=== PATIENT | male | born 1945 | race Caucasian/White ===

== ENCOUNTER 2017-02-24 19:47 | Emergency (ER) | payer MEDICARE ==
[2017-02-24] MEDS ORDERED: Diph,Pert(Acell),Tet Vac 0.5 ML SYR IM ONE (20:01)
[2017-02-24] MEDS ORDERED: PREDNISONE 10 MG TAB PO ONE (20:28)
[2017-02-24] MEDS ORDERED: CEPHALEXIN 500 MG CAPSULE PO STA (20:28)
[2017-02-24] MEDS ORDERED: DIPHENHYDRAMINE HCL 25 MG CAPSULE PO ONE (20:28)
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
== END 2017-02-24 20:53 | disposition home or self-care (01) ==
LOC: ER 19:47
DX: L56.8 Other specified acute skin changes due to ultraviolet radiation (principal); X32.XXXA Exposure to sunlight, initial encounter; Y93.H3 Activity, building and construction
CPT/HCPCS: 99283 ×2; 96372; J7512; 90715